=== PATIENT | male | born 1995 | race Caucasian/White ===

== ENCOUNTER → 2021-04-15 12:32 | Outpatient (CLI) | payer OTHER, MEDICAID, SELFPAY ==
[2021-04-15 13:30] LABS: Add Manual Diff / Slide Review NO; Basophils Absolute Auto 100 /uL (0-100); Basophils Percent Auto 1.1 % (0-2); Eosinophils Absolute Auto 300 /uL (0-450); Eosinophils Percent Auto 3.6 % (2-4); Hematocrit 46.9 % (41-53); Hemoglobin 15.3 g/dL (13.5-17.5); Lymphocytes Absolute Auto 2000 /uL (1100-4500); Lymphocytes Percent Auto 23.8 % (25-40); Mean Corpuscular HGB Conc 32.5 % (30-36); Mean Corpuscular Hemoglobin 27.2 PG (26-34); Mean Corpuscular Volume 83.6 fL (80-100); Monocytes Absolute Auto 600 /uL (0-900); Neutrophils Absolute Auto 5300 /uL (1500-7000); Neutrophils Percent Auto 64.5 % (50-75); Platelet Count 227 X10^3/uL (150-400); Red Blood Cell Count 5.61 X10^6/uL (4.5-5.9); Red Cell Distribution Width 13.8 % (11.6-14.8); White Blood Cell Count 8.2 X10^3/uL (4.5-11.0)
[2021-04-15 13:39] LABS: Hemoglobin A1C% w Est Avg Glu 5.1 % (4.0-6.0)
[2021-04-15 13:50] LABS: Alanine Aminotransferase 76 IU/L (<50); Albumin 4.4 g/dL (3.5-5.0); Albumin Globulin Ratio 1.4 (1.0-2.8); Alkaline Phosphatase 50 U/L (38-126); Aspartate Aminotransferase 54 IU/L (17-59); BUN Creatinine Ratio 18.7 (6-22); Bilirubin Total 0.6 mg/dL (0.2-1.3); Blood Urea Nitrogen 14 mg/dL (9-20); Carbon Dioxide 27 mmol/L (22-32); Chloride 104 mmol/L (98-107); Cholesterol 250 mg/dL (140-199); Estimated Glomerular Filt Rate > 60.0 mL/min (>60); Globulin 3.2 g/dL (1.7-4.1); Glucose 86 mg/dL (70-100); HDL Cholesterol 55 mg/dL (40-60); HEMOLYSIS < 15 (0-50); LDL Cholesterol Calculated 174 mg/dL (<100); Sodium 138 mmol/L (137-145); Total Protein 7.6 g/dL (6.3-8.2); Triglycerides 107 mg/dL (35-150)
[2021-04-15 14:20] LABS: TSH w/ Reflex to FT4 1.21 uIU/mL (0.47-4.68)
[2021-04-15 15:48] LABS: Creatinine Urine Random 190.3 mg/dL
[2021-04-15 15:54] LABS: Microalbumi Creatinin Ratio Ur 4.2 ug/mg CR (<30); Microalbumin Urine Random 0.8 mg/dL (0-1.6)
== END ==
PROVIDERS: PCP Family Medicine; Referring Provider Family Medicine; Visit Provider Family Medicine
DX: F32.A Depression, unspecified (principal); F41.9 Anxiety disorder, unspecified; I10 Essential (primary) hypertension
CPT/HCPCS: 36415; 80053; 80061; 82043; 82570; 83036; 84443; 85025

== ENCOUNTER → 2022-07-22 14:41 | Outpatient (CLI) | payer OTHER, MEDICAID, SELFPAY ==
[2022-07-22 17:02] LABS: Alanine Aminotransferase 30 IU/L (<50); Albumin 4.6 g/dL (3.5-5.0); Albumin Globulin Ratio 1.2 (1.0-2.8); Alkaline Phosphatase 72 U/L (38-126); Aspartate Aminotransferase 26 IU/L (17-59); BUN Creatinine Ratio 21.5 (6-22); Bilirubin Total 0.9 mg/dL (0.2-1.3); Blood Urea Nitrogen 17 mg/dL (9-20); Calcium 9.1 mg/dL (8.4-10.2); Carbon Dioxide 29 mmol/L (22-32); Chloride 96 mmol/L (98-107); Cholesterol 227 mg/dL (140-199); Estimated Glomerular Filt Rate > 60 mL/min (>60); Globulin 3.9 g/dL (1.7-4.1); Glucose 94 mg/dL (70-100); HDL Cholesterol 30 mg/dL (40-60); HEMOLYSIS < 15 (0-50); LDL Cholesterol Calculated 173 mg/dL (<100); Potassium 3.1 mmol/L (3.4-5.1); Sodium 141 mmol/L (137-145); Total Protein 8.5 g/dL (6.3-8.2); Triglycerides 120 mg/dL (35-150)
== END ==
PROVIDERS: PCP Family Medicine; Referring Provider Family Medicine; Visit Provider Family Medicine
DX: I10 Essential (primary) hypertension (principal); R74.01 Elevation of levels of liver transaminase levels; E78.5 Hyperlipidemia, unspecified
CPT/HCPCS: 36415; 80053; 80061

== ENCOUNTER 2022-08-18 15:25 | Emergency (ER) | payer OTHER, MEDICAID, SELFPAY ==
[2022-08-18 15:30] VITALS: BP 153/78; PULSE 86; RESP 18; TEMP 36.6; O2SAT 97; BMI 36.6
[2022-08-18 16:28] LABS: Add Manual Diff / Slide Review NO; Basophils Absolute Auto 100 /uL (0-100); Basophils Percent Auto 0.6 % (0-2); Eosinophils Absolute Auto 100 /uL (0-450); Eosinophils Percent Auto 0.7 % (2-4); Hematocrit 45.8 % (41-53); Hemoglobin 15.1 g/dL (13.5-17.5); Lymphocytes Absolute Auto 1200 /uL (1100-4500); Mean Corpuscular HGB Conc 32.8 % (30-36); Mean Corpuscular Hemoglobin 26.9 PG (26-34); Mean Corpuscular Volume 81.9 fL (80-100); Monocytes Absolute Auto 700 /uL (0-900); Monocytes Percent Auto 7.4 % (3-14); Neutrophils Absolute Auto 7800 /uL (1500-7000); Neutrophils Percent Auto 79.3 % (50-75); Platelet Count 215 X10^3/uL (150-400); Red Cell Distribution Width 14.3 % (11.6-14.8); White Blood Cell Count 9.9 X10^3/uL (4.5-11.0)
[2022-08-18 16:39] LABS: Acetaminophen < 10 ug/mL (10-30); Alanine Aminotransferase 29 IU/L (<50); Albumin 4.5 g/dL (3.5-5.0); Albumin Globulin Ratio 1.3 (1.0-2.8); Alkaline Phosphatase 63 U/L (38-126); Aspartate Aminotransferase 26 IU/L (17-59); BUN Creatinine Ratio 25.4 (6-22); Bilirubin Total 0.7 mg/dL (0.2-1.3); Blood Urea Nitrogen 18 mg/dL (9-20); Calcium 8.8 mg/dL (8.4-10.2); Carbon Dioxide 24 mmol/L (22-32); Chloride 100 mmol/L (98-107); Estimated Glomerular Filt Rate > 60 mL/min (>60); Ethanol (ETOH) < 10 mg/dL; Globulin 3.5 g/dL (1.7-4.1); Glucose 100 mg/dL (70-100); HEMOLYSIS 27 (0-50); Potassium 3.8 mmol/L (3.4-5.1); Salicylate < 1.0 mg/dL (<20); Sodium 137 mmol/L (137-145)
--- NOTE | 2022-08-18 16:55 | ED.PSYCH ---
HPI - Psych General Chief Complaint: Psychiatric Symptoms Stated Complaint: Psych Eval Time Seen by Provider: 08/18/22 16:21 Source: patient Mode of arrival: Ambulatory History of Present Illness HPI Narrative: 27-year-old male presenting with concern for worsening delusions/hallucinations. Patient reports dealing with significant stress in the setting of taking care of his parents, patient reports worsening difficulties managing stress and developing hallucinations where he believes in an objects are talking to him. Patient has contemplated suicide, denies clear plan. Patient does report prior inpatient psychiatric admissions. Patient denies suicide attempt prior to arrival today. Related Data Previous Rx's Medication Instructions Recorded ketoconazole 2 % topical cream 1 applic topical DAILY #30 grams 10/06/21 ketoconazole 200 mg tablet 200 mg PO QWEEK #4 tabs 10/22/21 fluoxetine 20 mg capsule (Prozac) 20 mg PO DAILY #90 caps 03/30/22 fluoxetine 40 mg capsule See Rx Instructions .Route 03/30/22 .COMPLEX #90 caps triamcinolone acetonide 0.1 % 1 applic topical BID #80 grams 03/30/22 topical cream Allergies Allergy/AdvReac Type Severity Reaction Status Date / Time No Known Drug Allergies Allergy Verified 04/13/21 08:06 Patient History Medical History ADHD Anxiety and depression Hyperlipidemia Hypertension PTSD (post-traumatic stress disorder) Suicidal ideations Social History Smoking Status: Former smoker Smoking Status: Former smoker Substance Use Type: marijuana Exam Narrative Exam Narrative: Vitals reviewed. Nursing note reviewed Constitutional: interactive HENT: Moist mucous membranes EYES: No scleral icterus NECK: no masses CV: Well perfused peripherally, no cyanosis present PULM: Unlabored respirations, symmetric chest rise ABD: Non-distended MS: No gross deformities, no asymmetric edema noted SKIN: Warm and dry. PSYCH: Appropriate affect, passive SI, hallucinations are present, no HI NEURO: Follows simple commands, moves extremities, interactive with exam Initial Vital Signs Initial Vital Signs: Vital Signs Temperature 97.9 F 08/18/22 15:30 Pulse Rate 86 08/18/22 15:30 Respiratory Rate 18 08/18/22 15:30 Blood Pressure 153/78 H 08/18/22 15:30 Pulse Oximetry 97 08/18/22 15:30 Oxygen Delivery Method 08/18/22 15:30 Course Orders Ordered: ED Orders 08/18/22 15:47 Consult to SCIENCE INSTRUCTOR - Flame Hardening Machine Operator Stat 08/18/22 16:18 Acetaminophen Stat Complete Blood Count AUTO DIFF Stat Comprehensive Metabolic Panel Stat Ethanol (ETOH) Stat Free T4, Direct Thyroxine Stat Salicylate Stat Thyroid Stimulating Hormone Stat 08/18/22 16:35 COVID19 -Nasal RAPID/Pre-Proc Stat 08/18/22 16:38 Urine Drug Screen, Rapid Stat Urine Microscopic Stat Vital Signs Vital signs: Vital Signs - 8 hr 08/18/22 15:30 Temperature 97.9 F Pulse Rate 86 Respiratory Rate 18 Blood Pressure 153/78 H Pulse Oximetry 97 Oxygen Delivery Method Room Air MDM - Psych Lab Data 08/18/22 16:18 08/18/22 16:18 Labs: Lab Results 08/18/22 08/18/22 08/18/22 Range/Units 16:18 16:18 16:18 WBC 9.9 (4.5-11.0) X10^3/uL RBC 5.60 (4.5-5.9) X10^6/uL Hgb 15.1 (13.5-17.5) g/dL Hct 45.8 (41-53) % MCV 81.9 (80-100) fL MCH 26.9 (26-34) PG MCHC 32.8 (30-36) % RDW 14.3 (11.6-14.8) % Plt Count 215 (150-400) X10^3/uL Neut % (Auto) 79.3 H (50-75) % Lymph % (Auto) 12.0 L (25-40) % Kane % (Auto) 7.4 (3-14) % Eos % (Auto) 0.7 L (2-4) % Baso % (Auto) 0.6 (0-2) % Neut # (Auto) 7800 H (9735-0079) /uL Lymph # (Auto) 1200 (7065-2995) /uL Kane # (Auto) 700 (0-900) /uL Eos # (Auto) 100 (0-450) /uL Baso # (Auto) 100 (0-100) /uL Sodium 137 (137-145) mmol/L Potassium 3.8 (3.4-5.1) mmol/L Chloride 100 (98-107) mmol/L Carbon Dioxide 24 (22-32) mmol/L BUN 18 (9-20) mg/dL Creatinine 0.71 (0.66-1.25) mg/dL Estimated GFR > 60 (>60) mL/min BUN/Creatinine Ratio 25.4 H (6-22) Glucose 100 (70-100) mg/dL Calcium 8.8 (8.4-10.2) mg/dL Total Bilirubin 0.7 (0.2-1.3) mg/dL AST 26 (17-59) IU/L ALT 29 (<50) IU/L Alkaline Phosphatase 63 (38-126) U/L Total Protein 8.0 (6.3-8.2) g/dL Albumin 4.5 (3.5-5.0) g/dL Globulin 3.5 (1.7-4.1) g/dL Albumin/Globulin Ratio 1.3 (1.0-2.8) TSH 0.518 (0.47-4.68) uIU/mL Free T4 1.38 (0.78-2.19) ng/dL Urine RBC (0-5/HPF) Urine WBC (0-5/HPF) Ur Squamous Epith Cells (0-5/HPF) Urine Bacteria (None) Ur Culture Indicated? Salicylates < 1.0 (<20) mg/dL U Opiates 300ng/mL cut (Negative) Ur Oxycodone Screen (Negative) Urine Methadone Screen (Negative) Acetaminophen < 10 (10-30) ug/mL Ur Barbiturates Screen (Negative) U Tricyclic Antidepress (Negative) Ur Phencyclidine Scrn (Negative) Ur Amphetamines Screen (Negative) U Methamphetamines Scrn (Negative) Ur MDMA Scrn (Ecstasy) (Negative) U Benzodiazepines Scrn (Negative) Urine Cocaine Screen (Negative) U Marijuana (THC) Screen (Negative) Ethyl Alcohol < 10 ( - 10) mg/dL SARS-CoV-2 (PCR) (Negative) 08/18/22 08/18/22 08/18/22 Range/Units 16:35 16:38 16:38 WBC (4.5-11.0) X10^3/uL RBC (4.5-5.9) X10^6/uL Hgb (13.5-17.5) g/dL Hct (41-53) % MCV (80-100) fL MCH (26-34) PG MCHC (30-36) % RDW (11.6-14.8) % Plt Count (150-400) X10^3/uL Neut % (Auto) (50-75) % Lymph % (Auto) (25-40) % Kane % (Auto) (3-14) % Eos % (Auto) (2-4) % Baso % (Auto) (0-2) % Neut # (Auto) (9431-3644) /uL Lymph # (Auto) (3345-6099) /uL Kane # (Auto) (0-900) /uL Eos # (Auto) (0-450) /uL Baso # (Auto) (0-100) /uL Sodium (137-145) mmol/L Potassium (3.4-5.1) mmol/L Chloride (98-107) mmol/L Carbon Dioxide (22-32) mmol/L BUN (9-20) mg/dL Creatinine (0.66-1.25) mg/dL Estimated GFR (>60) mL/min BUN/Creatinine Ratio (6-22) Glucose (70-100) mg/dL Calcium (8.4-10.2) mg/dL Total Bilirubin (0.2-1.3) mg/dL AST (17-59) IU/L ALT (<50) IU/L Alkaline Phosphatase (38-126) U/L Total Protein (6.3-8.2) g/dL Albumin (3.5-5.0) g/dL Globulin (1.7-4.1) g/dL Albumin/Globulin Ratio (1.0-2.8) TSH (0.47-4.68) uIU/mL Free T4 (0.78-2.19) ng/dL Urine RBC 0-1/hpf (0-5/HPF) Urine WBC None seen (0-5/HPF) Ur Squamous Epith Cells None seen (0-5/HPF) Urine Bacteria None seen (None) Ur Culture Indicated? Cult not indicated Salicylates (<20) mg/dL U Opiates 300ng/mL cut Negative (Negative) Ur Oxycodone Screen Negative (Negative) Urine Methadone Screen Negative (Negative) Acetaminophen (10-30) ug/mL Ur Barbiturates Screen Negative (Negative) U Tricyclic Antidepress Negative (Negative) Ur Phencyclidine Scrn Negative (Negative) Ur Amphetamines Screen Negative (Negative) U Methamphetamines Scrn Negative (Negative) Ur MDMA Scrn (Ecstasy) Negative (Negative) U Benzodiazepines Scrn Negative (Negative) Urine Cocaine Screen Negative (Negative) U Marijuana (THC) Screen Positive H (Negative) Ethyl Alcohol ( - 10) mg/dL SARS-CoV-2 (PCR) Negative (Negative) Urine Dip Bedside Urine Glucose Negative Bedside Urine Bilirubin - Negative Bedside Urine Ketone +++ 80 Urine Specific Cardwell 1.030 Bedside Urine Occult Blood +/- Bedside Urine pH 6 Bedside Urine Protein - Negative Bedside Urine Urobilinogen +/- 1mg Bedside Urine Nitrite - Negative Bedside Urine Leukocytes - Negative Esterase MDM Narrative Medical decision making narrative: 27-year-old male presenting with worsening hallucinations and delusions in the setting of known history of anxiety and depression. On presentation, vital signs notable for hypertension. Physical exam notable for alert and interactive 27-year-old male who is conversant, reassuring cardiopulmonary exam, benign abdomen. Psychiatric exam notable for passive SI, no HI. Initial concern for exacerbation of the patient's underlying psychiatric conditions, infectious etiology, electrolyte derangement, medication effect. Broad screening labs obtained and reassuring as above. Patient without evidence of infection or alternative medical etiology to explain his symptoms. Suspect exacerbation of patient's underlying head psychiatric comorbid conditions. At this time, patient does appear to be medically cleared and appropriate for psychiatric evaluation. Patient accepted that [facility] for voluntary placement. Following transport, patient change his mind regarding inpatient placement. Requesting discharge. Patient was reassessed by both health care / medical job titles and emergency department provider, patient does not appear to be an immediate danger to self others, stress that patient would likely benefit from inpatient treatment, however, patient does not appear to meet retirement criteria at this time. After discussion with both click worker and provider, patient continuing to request discharge. Discussed possibility for decompensation and worsening symptoms, patient did express understanding and continued to request discharge. Patient was subsequently discharged against medical advice. Discharge Plan Departure Patient Disposition: Left Against Medical Advice Clinical Impression: Psychosis Activity Restrictions/Additional Instructions: You are leaving against medical advice. Please return to the emergency department if you change your mind regarding inpatient admission and further management. Please return to the emergency department if you develop thoughts of harming yourself or other individuals. Prescriptions: No Action ketoconazole 2 % cream 1 applic topical DAILY Qty: 30 0RF Rx Instructions: apply until gone. thanks. ketoconazole 200 mg tablet 200 mg PO QWEEK Qty: 4 0RF fluoxetine [Prozac] 20 mg capsule 20 mg PO DAILY Qty: 90 1RF triamcinolone acetonide 0.1 % cream 1 applic topical BID Qty: 80 0RF fluoxetine 40 mg capsule See Rx Instructions .ROUTE .COMPLEX Qty: 90 3RF Dose Instruction: TAKE 1 CAPSULE BY MOUTH DAILY Rx Instructions: TAKE 1 CAPSULE BY MOUTH DAILY Stand Alone Forms: Against Medical Advice
[2022-08-18 16:57] LABS: UR Morphine/Opiate cutoff 300 Negative (Negative); Ur Creatinine Normal (Normal); Ur Specific Gravity Normal (Normal); Urine Amphetamines Negative (Negative); Urine Barbiturates Negative (Negative); Urine Benzodiazepines Negative (Negative); Urine Cocaine Negative (Negative); Urine MDMA Negative (Negative); Urine Methadone Negative (Negative); Urine Methamphetamines Negative (Negative); Urine Oxycodone Negative (Negative); Urine Phencyclidine Negative (Negative); Urine Tetrahydrocannabinol Positive (Negative); Urine Tricyclic Antidepressant Negative (Negative); Urine pH Normal (Normal)
[2022-08-18 16:58] LABS: COVID19 -Nasal RAPID Negative (Negative)
[2022-08-18 17:08] LABS: Free T4, Direct Thyroxine 1.38 ng/dL (0.78-2.19)
[2022-08-18 17:12] LABS: Bacteria Urine None Seen; Culture Indicated Urine Cult Not Indicated; RBC Urine 0-1/HPF (0-5/HPF); Squamous Epithelial Cell Urine None Seen (0-5/HPF); WBC Urine None Seen (0-5/HPF)
[2022-08-18 17:22] LABS: Thyroid Stimulating Hormone 0.518 uIU/mL (0.47-4.68)
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
[2022-08-18 18:00] VITALS: BP 150/78; PULSE 80; RESP 18; O2SAT 98
--- NOTE | 2022-08-18 19:13 | CM.SWNOTE ---
TENNIS DIRECTOR Note TENNIS DIRECTOR calls [facility], intake Viry endorses they have beds and can review patient, TENNIS DIRECTOR faxes clinicals. It is reported that patient is accepted and accepting provider is MARTINA Coker. ETA is 2300. TENNIS DIRECTOR calls [facility] to set up transport. TENNIS DIRECTOR calls therapist and leaves with patient's consent. Patient later requests to speak with TENNIS DIRECTOR. Patient endorses that after speaking with his parents earlier he feels like he can go home and does not need to go to inpatient. Patient endorses he feels delusional OCD compulsion and feels the need to say things on his mind. Patient endorses that he prefers to go home, Patient denies SI, HI and thoughts of self harm. Patient speaks with charge histotechnologist and ED provider prior to leaving. Patient denies any needs from TENNIS DIRECTOR. TENNIS DIRECTOR calls Transport and [facility] and reports that patient does not need transport or inpatient bed. Plan: patient chose to d/c to home. Patient to f/u with outpatient provider. KATHLEEN Moctezuma
== END 2022-08-18 19:19 | disposition left against medical advice (07) ==
PROVIDERS: Emergency Provider Emergency Medicine; PCP Family Medicine
DX: F29 Unspecified psychosis not due to a substance or known physiological condition (principal); Z20.822 Contact with and (suspected) exposure to COVID-19
CPT/HCPCS: 36415; 80053; 80305; 80320; 80329; 81003; 81015; 84439; 84443; 85025; 87635; 99284; C9803; G0480

== ENCOUNTER 2022-09-26 18:11 | Emergency (ER) | payer OTHER, MEDICAID, SELFPAY ==
[2022-09-26 18:22] VITALS: BP 126/82; PULSE 80; RESP 16; TEMP 36.1; O2SAT 100; BMI 36.6
--- NOTE | 2022-09-26 18:27 | DI.RAD.S_ITS ---
PROCEDURE: XR FINGER RT MIN 2V INDICATIONS: 5th digit caught in leash, swelling TECHNIQUE: AP hand, 2 views of the 5th finger(s) acquired. COMPARISON: None. FINDINGS: Bones: Intra-articular oblique fracture of the radial side of the 5th proximal phalanx extending into the proximal interphalangeal joint. No suspicious bony lesions. Soft tissues: No suspicious soft tissue calcifications. IMPRESSION: Minimally displaced 5th proximal phalanx fracture. Dictated by: Derian Acuna M.D. on 09/26/2022 at 17:50 Approved by: Derian Acuna M.D. on 09/26/2022 at 17:52
--- NOTE | 2022-09-26 19:24 | ED_ITS ---
HPI - Extremity Injury (Upper) <Yadira Florentino PA-C - Last Filed: 09/26/22 19:50> General Chief Complaint: Extremity Injury, Upper Stated Complaint: right hand/pinky finger injury Time Seen by Provider: 09/26/22 19:24 History of Present Illness HPI narrative: 27-year-old male presents with concern for right pinky injury sustained 4 days ago. Patient states that he has been trying to socialize his dog who is a large dog and had his hand wrapped in the harness and the leash and somehow his dog pulled the leash wrapping around his finger and causing it to be extremely painful. He states he does not know exactly what happened but he noted that it was swollen and painful and iced it on and off and got himself a finger splint which he has been wearing fairly judiciously. States he got the splint because he noticed he could not really bend his finger very well. He says it was very bruised and swollen initially but has improved. He denies any previous injury or surgery to this finger. He also denies any other injuries. He denies numbness or tingling or change in sensation. Related Data Previous Rx's Medication Instructions Recorded ketoconazole 2 % topical cream 1 applic topical DAILY #30 grams 10/06/21 ketoconazole 200 mg tablet 200 mg PO QWEEK #4 tabs 10/22/21 fluoxetine 40 mg capsule See Rx Instructions .Route 03/30/22 .COMPLEX #90 caps triamcinolone acetonide 0.1 % 1 applic topical BID #80 grams 03/30/22 topical cream fluoxetine 20 mg capsule See Rx Instructions .Route 09/08/22 .COMPLEX #90 caps Allergies Allergy/AdvReac Type Severity Reaction Status Date / Time No Known Drug Allergies Allergy Verified 04/13/21 08:06 Review of Systems <Yadira Florentino PA-C - Last Filed: 09/26/22 19:50> Review of Systems Narrative: Unremarkable except as noted in the HPI Patient History <Yadira Florentino PA-C - Last Filed: 09/26/22 19:50> Medical History ADHD Anxiety and depression Hyperlipidemia Hypertension PTSD (post-traumatic stress disorder) Suicidal ideations Social History Smoking Status: Former smoker Smoking Status: Former smoker Substance Use Type: marijuana Exam <Yadira Florentino PA-C - Last Filed: 09/26/22 19:50> Narrative Exam Narrative: GENERAL: [27] year old patient appears stated age. Well-developed patient, in mild distress. HEAD: Atraumatic. Normocephalic. EYES: Pupils equal round and reactive. Extraocular motions intact. No scleral icterus. No injection or drainage. ENT: Nose without bleeding, purulent drainage. Airway patent. NECK: Trachea midline. Non tender CARDIOVASCULAR: Regular rate and rhythm without murmurs, gallops, or rubs. RESPIRATORY: No increased work of breathing or respiratory distress GASTROINTESTINAL: Abdomen nondistended. EXTREMITIES: In the affected right 5th digit there is moderate swelling present most prominent proximally, there is slight bruising present that is purplish yellow. Patient has tenderness with palpation of the PIP joint proximally, and of the distal portion of the proximal phalanx; no other tenderness noted. Patient is able to flex the affected finger very slightly but with increased pain. Capillary refill is less than 2 seconds, sensation is intact, skin is pink and warm. BACK: Nontender without deformity or crepitance. No flank tenderness. NEURO: AOx3. SKIN: No rash or erythema of visible areas Initial Vital Signs Initial Vital Signs: Vital Signs Temperature 97.0 F L 09/26/22 18:22 Pulse Rate 80 09/26/22 18:22 Respiratory Rate 16 09/26/22 18:22 Blood Pressure 126/82 09/26/22 18:22 Pulse Oximetry 100 09/26/22 18:22 Oxygen Delivery Method Room Air 09/26/22 18:22 <Thong Farrar DO - Last Filed: 09/28/22 13:47> Initial Vital Signs Initial Vital Signs: Vital Signs Temperature 97.0 F L 09/26/22 18:22 Pulse Rate 80 09/26/22 18:22 Respiratory Rate 16 09/26/22 18:22 Blood Pressure 126/82 09/26/22 18:22 Pulse Oximetry 100 09/26/22 18:22 Oxygen Delivery Method Room Air 09/26/22 18:22 Course <Yadira Florentino PA-C - Last Filed: 09/26/22 19:50> Orders Ordered: ED Orders 09/26/22 18:27 XR finger RT min 2V Stat Vital Signs Vital signs: Vital Signs - 8 hr 09/26/22 18:22 Temperature 97.0 F L Pulse Rate 80 Respiratory Rate 16 Blood Pressure 126/82 Pulse Oximetry 100 Oxygen Delivery Method Room Air <Thong Farrar DO - Last Filed: 09/28/22 13:47> Orders Ordered: ED Orders 09/26/22 18:27 XR finger RT min 2V Stat Vital Signs Vital signs: Vital Signs - 8 hr 09/26/22 18:22 Temperature 97.0 F L Pulse Rate 80 Respiratory Rate 16 Blood Pressure 126/82 Pulse Oximetry 100 Oxygen Delivery Method Room Air MDM - Extremity Injury (Upper) <Yadira Florentino PA-C - Last Filed: 09/26/22 19:50> Differential Diagnosis Differential diagnosis: Likely finger sprain, dislocation of finger and other (Finger fracture) Medical Records Attestation: I reviewed the patient's medical records. Imaging Data Extremity x-ray #1: My Impression: I agree with the radiologist's interpretation of the image Radiologist's Impression: [place] [address] XRay Report Signed Patient: Sancho Young MR#: [id number] : 1995 Acct:[id number] Age/Sex: 27 / M Date of Service: 09/26/22 Loc: ED Accession Number: [id number] ?? Procedure: XR finger RT min 2V Ordering Provider: Thong Farrar D.O. PROCEDURE:? XR FINGER RT MIN 2V ? INDICATIONS:? 5th digit caught in leash, swelling ? TECHNIQUE:? AP hand, 2 views of the 5th finger(s) acquired.? ? COMPARISON:? None. ? FINDINGS:? ? Bones:? Intra-articular oblique fracture of the radial side of the 5th proximal phalanx extending into the proximal interphalangeal joint.? No suspicious bony lesions.? ? Soft tissues:? No suspicious soft tissue calcifications.? ? IMPRESSION:? Minimally displaced 5th proximal phalanx fracture. ? ? Dictated by: Derian Aucna M.D. on 09/26/2022 at 17:50 ? ? Approved by: Derian Acuna M.D. on 09/26/2022 at 17:52?? MDM Narrative Medical decision making narrative: Is a well-appearing 27-year-old Right handed male who presents with concern for right 5th digit pain at and proximal to the PIP present for 4 days since dog leash wrapped around his finger and yanked on it. Has been wearing a finger splint and icing on and off has not been bending it due to pain and swelling. Exam today shows he is neurovascularly intact he does have reduced range of motion 2nd to pain. X-ray does show a mildly displaced fracture of the distal aspect of the proximal phalanx. Given location of the fracture surgical intervention is possibly necessary, Orthopedics is consulted and agrees with plan for splinting and outpatient follow-up, patient is placed in a updated finger splint in the emergency department. Return precautions provided, follow- up plan discussed, all questions answered. Discharge Plan Departure Patient Disposition: Home Clinical Impression: Finger fracture, right Instructions: DI for Fracture Activity Restrictions/Additional Instructions: Thank you for letting us be part of your care today in the emergency department, your x-ray does show that you have a fracture of the 1st bone in your right pinky, which likely explains your pain and swelling and reduced range of motion since your dog wrapped a leash around it and pulled it 4 days ago. I would like you to continue with icing on and off as needed for pain and swelling, no more than 10 minutes at a time, you can keep your hand elevated, keep it in a splint/immobilized. You may also use Tylenol and ibuprofen alternating for pain as needed. We provided a new splint for you today in the emergency department. We also consulted Orthopedics and you should follow-up with them as there is a possibility that this fracture may require surgery based on its location near the joint. There is no evidence of an emergent or life threatening illness at this time, but follow up with your doctor in 1-2 days is recommended nonetheless to continue to rule out serious underlying causes of your symptoms. Please call the office for an appointment. Please return to the Emergency Department for any worsening or persistent symptoms. Please take medications as directed. Prescriptions: No Action ketoconazole 2 % cream 1 applic topical DAILY Qty: 30 0RF Rx Instructions: apply until gone. thanks. ketoconazole 200 mg tablet 200 mg PO QWEEK Qty: 4 0RF fluoxetine 20 mg capsule See Rx Instructions .ROUTE .COMPLEX Qty: 90 0RF Dose Instruction: TAKE 1 CAPSULE BY MOUTH DAILY Rx Instructions: TAKE 1 CAPSULE BY MOUTH DAILY triamcinolone acetonide 0.1 % cream 1 applic topical BID Qty: 80 0RF fluoxetine 40 mg capsule See Rx Instructions .ROUTE .COMPLEX Qty: 90 3RF Dose Instruction: TAKE 1 CAPSULE BY MOUTH DAILY Rx Instructions: TAKE 1 CAPSULE BY MOUTH DAILY Referrals: Jorge Vazquez MD [Physician] - (Right handed, Proximal phalanx mild displaced fx) Te Walden MD [Primary Care Provider] - Stand Alone Forms: Patient Portal/API <Thong Farrar DO - Last Filed: 09/28/22 13:47> Cosign ED Attending Cosignature Attestation: I was immediately available in the department for consultation. Documentation has been reviewed. I agree with assessment and plan.
== END 2022-09-26 20:04 | disposition home or self-care (01) ==
PROVIDERS: Emergency Provider Student in an Organized Health Care Education/Training Program; PCP Family Medicine
DX: S62.616A Displaced fracture of proximal phalanx of right little finger, initial encounter for closed fracture (principal); W49.09XA Other specified item causing external constriction, initial encounter
CPT/HCPCS: 29130; 73140; 99281; 99283

== ENCOUNTER 2022-10-06 13:43 | Day surgery (SDC) | payer OTHER, MEDICAID, SELFPAY ==
[2022-10-05 08:03] VITALS: BMI 36.6
[2022-10-06] VITALS (7 sets, daily range): BP systolic 100–127; BP diastolic 54–77; PULSE 79–87; RESP 16–18; TEMP 36.1–37.2; O2SAT 95–98; BMI 36.6
[2022-10-06] MEDS: LACTATED RINGERS 1,000 ML 42 ML IV (14:50)
--- NOTE | 2022-10-06 15:45 | PM.PREOP ---
Pre-operative Note Interval Note History & Physical reviewed/Exam performed by Physician: Yes Changes to H&P: No
[2022-10-06] MEDS: CEFAZOLIN 2 GM/100 ML PREMIX 100 ML IV (15:54)
--- NOTE | 2022-10-06 16:10 | SUR.OPER ---
Supine on padded OR bed, head on pillow, left arm secured on padded arm boards at <90 degrees abduction, right arm on padded arm board extention and in control of surgeon. Legs uncrossed, safety belt at thigh, tape over blanket over lower legs. Gel pad under bilateral heels.
[2022-10-06] MEDS: BUPIVACAINE 0.25% (PF) VIAL 10 ML INJ (16:27)
--- NOTE | 2022-10-06 16:44 | P.OP_ITS ---
Operative Date/Time/Diagnoses Date of procedure: 10/06/22 Time of procedure: 16:46 Pre-op diagnosis: Right small finger proximal phalanx intra-articular fracture Post-op diagnosis: same Procedure & Clinicians Procedure: Open reduction percutaneous pinning right small finger proximal phalanx Same procedure as scheduled: Yes Indications: This is a 27-year-old male who broke his right small finger proximal phalanx at the PIP joint when his dog twisted his finger and the leash. As this was intra- articular and the condyle was displaced, he was indicated for reduction and pinning. Risks and benefits of surgery were discussed again including the risk of infection, damage to internal structures, bleeding, nerve injury, instability, need for revision surgery, blood clots, anesthesia and . No guarantees were made regarding outcomes. Patient expressed understanding and accepted these risks and wished to go forward with surgery and consent was signed. He expressed understanding and wished to go forward with surgery. Surgeon: Jorge Vazquez Click Yes if Unassisted: Yes Anesthesia Type: General Operative Notes Findings: Oblique intra-articular fracture of the proximal phalanx right hand Closure Type: primary Specimen(s): none sent Prosthetic devices, grafts, tissues, transplants, or devices: A single 1.6 K-wire Estimated Blood Loss (mL): 2 Blood products transfused: none Procedure in detail: Patient was seen in the preoperative holding area. His right hand was examined and marked with my initials. We again went over the risks and benefits of surgery and he wished to go forward with surgery. He was brought back to the operating room and placed supine on the operating table. Given IV antibiotics. He was given light sedation which was then transitioned to a LMA. The right upp er extremity was prepped and draped in the standard sterile fashion. A time-out was performed in my initials were again confirmed on the right hand. I began by making a 1/2 cm incision over the radial border of the distal end of the proximal phalanx of the small finger. A [place] was used to assist in reduction along with a pointed reduction clamp. A K-wire was then placed from the ulnar side across the fracture. It was then bent and a Jurgan ball was placed. The incision on the radial side was closed with a [id number] stitch. He was then placed into a finger splint and woken from anesthesia. We will plan on pulling the wire in 4 weeks and he will remain in his splint for 6 total weeks after which he will begin physical therapy for range of motion. Complications: none Post-operative Condition: stable Plan for aftercare: Sutures out in 2 weeks. Keep splint on and dry until then. Okay to redress wound if dressings get dirty.
== END 2022-10-06 17:38 | disposition home or self-care (01) ==
PROVIDERS: PCP Family Medicine; Referring Provider Orthopaedic Surgery; Visit Provider Orthopaedic Surgery
PROC: (CPT 26735; principal; 2022-10-06 14:45)
DX: S62.616A Displaced fracture of proximal phalanx of right little finger, initial encounter for closed fracture (principal); X50.1XXA Overexertion from prolonged static or awkward postures, initial encounter; Y93.K1 Activity, walking an animal
CPT/HCPCS: 26735; J0690; J1100; J2405; J2704; J3010; J3490

== ENCOUNTER 2022-11-23 09:36 | Outpatient (RCR) | payer OTHER, MEDICAID, SELFPAY ==
--- NOTE | 2022-11-23 16:00 | OT.OP.EVAL ---
Visit Care Team Role Provider Type Te Walden MD Primary Care Provider Physician Specialty: Family Practice Address: [address] [place] [address], [id number] Email: [email or web address] Pantoja Family Provider Non-Staff Specialty: Family Practice Address: [address] [place] [address], [address], [place], [address] Email: Jorge Vazquez MD Attending Provider Physician Referring Provider Specialty: Orthopedics Orthopedic Surgery Address: [address] [place] [address], [address] Email: [email or web address] [facility] Initial Evaluation OT Outpatient Adult Evaluation Start: 11/24/22 09:28 Freq: Status: Active Protocol: Document 11/23/22 16:00 AMS (Rec: 11/24/22 09:36 AMS [id number]) General Information - Adult Visit Number EVAL; 0/12 Insurance Information [facility]; 1 eval & max 12 OT visits [facility] Visit Start Time 09:45 Visit Stop Time 10:15 Total Visit Minutes 30 Treatment Setting Outpatient Care Note Type Initial Evaluation Referring Physician Jorge Lezama MD Precautions Closed displaced fracture of proximal phalanx of right little finger Surgery = Right pinky finger proximal phalanx percutaneous pinning w/ Dr. Vazquez () Treatment Description = OT eval and treat. HEP. ROM. Follow-up w/ in 12 weeks after starting OT. Identification Confirmed Yes Identification Confirmed By Self Goals Short Term Goals 1. Patient will present with increased ability to execute daily and work tasks in a variety of environments 1a. This will be evidenced by improved active flexion of PIPJ of the R 5th digit to 80 degrees active flexion. Industrial Health Engineer Goals 1. Patient will be modified independent with execution of home exercise program utilizing provided written and visual instructions from therapist. 2. Patient will present with increased ability to execute daily and work tasks in a variety of environments 2a. This will be evidenced by obtaining a QuickDASH UE Outcome Measure Score < 12.00. 2b. This will be evidenced by obtaining a QuickDASH UE Work Module Score < 25.00. Assessment/Plan Treatment Assessment Orders from referring physician: Closed displaced fracture of proximal phalanx of right little finger Surgery = Right pinky finger proximal phalanx percutaneous pinning w/ Dr. Vazquez () Treatment Description = OT eval and treat. HEP. ROM. Follow-up w/ in 12 weeks after starting OT. 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 His mother has stage 4 kidney failure and recently broke her ankle; his father uses a SPC for mobility and both have difficulties with their balance with Sancho reportedly assisting them from floor/d/t falls as needed. Sancho reported that the injury to his R 5th digit occurred secondary to his dog's leash getting wrapped around the little finger while he was a the dog park. Surgery was performed (see above). Sancho denied any precautions at this time. He would like to improve upon the strength of the little finger as well as the ROM. Medical history is significant for ADHD, hyperlipidemia, PTSD, anxiety and depression, and HTN, as well as injury to the R 5th finger when he was younger ( tore off the skin w/ need for surgery; radial shaft scar reportedly from this injury as a child). Sancho denied pain/discomfort of the R 5th digit. QuickDASH UE Outcome Measure Score = 20.45; QuickDASH UE Work Module Score = 37.5; QuickDASH UE Sports/Performing Arts Module Score = 0.00. 65 degrees active R 5th DIPJ; 70 degrees active R 5th PIPJ vs 90 degrees passive R 5th PIPJ flexion; 90 degrees active R MPJ. Able to position hand/ little finger flat on table without c/o pain/discomfort/ tenderness and/or difficulties w/ weight bearing. Some weakness present; 4/5 MMT R 5th digit abd/add; 4/5 MMT R 5th digit flex/ext. Sancho reports actively working on strengthening of the finger w/ use of stress ball. Sancho would likely benefit from outpatient OT to address weakness, ROM, development of HEP, and improve functional abilities of the right hand w/ completion of daily tasks and work tasks in a variety of environments. Home Exercise Program Provided medium firm blue theraputty for home use; instructed in the care and storage of theraputty (was provided to patient in ziplock bag). Instructed in flex/ext strengthening exercises, as well as abd/add strengthening exercises utilizing the theraputty. Sancho denied questions re: strengthening exercises. Instructed in passive hook fist stretch utilizing contralateral hand w / hold of 20 to 30 seconds; discussed use of heat to support range of motion and flexibility. Instructed in use of coban wrap for passive stretch for up to 20 minutes as tolerated. Sancho denied questions about any of the exercises/recommendations. Length of treatment (weeks) 8 Plan of Care Start Date 11/23/22 Plan of Care End Date 01/18/23 Comment 1 -2 times per week; has insurance limitations Therapeutic Contents Active Range of Motion, Adaptive Equipment Education, Client Education,Functional Activities,Home Exercise Program,Joint Protection, Manual Therapy,Education, Neurodevelopment Treatment, Neuromuscular Re-Education, Self-Care,Stretching/ Flexibility Activities, Therapeutic Activities, Therapeutic Exercises, Modalities,Sensory Re- education Modalities As Needed,As Prescribed Additional Types of Modalities Heat/Ice/Contrast baths/ Ultrasound/Paraffin bath Patient Recommendations Continue with Current Program, Advance per Rehabilitation Protocol
--- NOTE | 2023-01-19 09:09 | OT.OP.DC ---
Visit Care Team Role Provider Type Te Walden MD Primary Care Provider Physician Address: [address] [place] [address], [id number] Email: [email or web address] Kirsten MARTINA Moya Family Provider Non-Staff Address: [address] [place] [address], [address], [place], [address] Email: Jorge Vazquez MD Attending Provider Physician Referring Provider Address: [address] [place] [address], [address] Email: [email or web address] Outpatient OT Outpatient Adult Evaluation Start: 11/24/22 09:28 Freq: Status: Active Protocol: Document 11/23/22 16:00 AMS (Rec: 11/24/22 09:36 AMS [id number]) General Information - Adult Visit Information Visit Number EVAL; 0/12 Insurance Information [facility]; 1 eval & max 12 OT visits PCY Session Time Visit Start Time 09:45 Visit Stop Time 10:15 Total Visit Minutes 30 Setting Treatment Setting Outpatient Care Visit Type Note Type Initial Evaluation Referral Referring Physician Jorge Lezama MD Precautions Closed displaced fracture of proximal phalanx of right little finger Surgery = Right pinky finger proximal phalanx percutaneous pinning w/ Dr. Vazquez () Treatment Description = OT eval and treat. HEP. ROM. Follow-up w/ in 12 weeks after starting OT. Identification Identification Confirmed Yes Identification Confirmed By Self Goals Short Term Goals Short Term Goals 1. Patient will present with increased ability to execute daily and work tasks in a variety of environments 1a. This will be evidenced by improved active flexion of PIPJ of the R 5th digit to 80 degrees active flexion. Shelter Goals Public Safety Director Goals 1. Patient will be modified independent with execution of home exercise program utilizing provided written and visual instructions from therapist. 2. Patient will present with increased ability to execute daily and work tasks in a variety of environments 2a. This will be evidenced by obtaining a QuickDASH UE Outcome Measure Score < 12.00. 2b. This will be evidenced by obtaining a QuickDASH UE Work Module Score < 25.00. Assessment/Plan Assessment Treatment Assessment Orders from referring physician: Closed displaced fracture of proximal phalanx of right little finger Surgery = Right pinky finger proximal phalanx percutaneous pinning w/ Dr. Vazquez () Treatment Description = OT eval and treat. HEP. ROM. Follow-up w/ in 12 weeks after starting OT. 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 His mother has stage 4 kidney failure and recently broke her ankle; his father uses a SPC for mobility and both have difficulties with their balance with Sancho reportedly assisting them from floor/d/t falls as needed. Sancho reported that the injury to his R 5th digit occurred secondary to his dog's leash getting wrapped around the little finger while he was a the dog park. Surgery was performed (see above). Sancho denied any precautions at this time. He would like to improve upon the strength of the little finger as well as the ROM. Medical history is significant for ADHD, hyperlipidemia, PTSD, anxiety and depression, and HTN, as well as injury to the R 5th finger when he was younger ( tore off the skin w/ need for surgery; radial shaft scar reportedly from this injury as a child). Sancho denied pain/discomfort of the R 5th digit. QuickDASH UE Outcome Measure Score = 20.45; QuickDASH UE Work Module Score = 37.5; QuickDASH UE Sports/Performing Arts Module Score = 0.00. 65 degrees active R 5th DIPJ; 70 degrees active R 5th PIPJ vs 90 degrees passive R 5th PIPJ flexion; 90 degrees active R MPJ. Able to position hand/ little finger flat on table without c/o pain/discomfort/ tenderness and/or difficulties w/ weight bearing. Some weakness present; 4/5 MMT R 5th digit abd/add; 4/5 MMT R 5th digit flex/ext. Sancho reports actively working on strengthening of the finger w/ use of stress ball. Sancho would likely benefit from outpatient OT to address weakness, ROM, development of HEP, and improve functional abilities of the right hand w/ completion of daily tasks and work tasks in a variety of environments. Home Exercise Program Provided medium firm blue theraputty for home use; instructed in the care and storage of theraputty (was provided to patient in ziplock bag). Instructed in flex/ext strengthening exercises, as well as abd/add strengthening exercises utilizing the theraputty. Sancho denied questions re: strengthening exercises. Instructed in passive hook fist stretch utilizing contralateral hand w / hold of 20 to 30 seconds; discussed use of heat to support range of motion and flexibility. Instructed in use of coban wrap for passive stretch for up to 20 minutes as tolerated. Sancho denied questions about any of the exercises/recommendations. Plan Length of treatment (weeks) 8 Plan of Care Start Date 11/23/22 Plan of Care End Date 01/18/23 Comment 1 -2 times per week; has insurance limitations Therapeutic Contents Active Range of Motion, Adaptive Equipment Education, Client Education,Functional Activities,Home Exercise Program,Joint Protection, Manual Therapy,Education, Neurodevelopment Treatment, Neuromuscular Re-Education, Self-Care,Stretching/ Flexibility Activities, Therapeutic Activities, Therapeutic Exercises, Modalities,Sensory Re- education Modalities As Needed,As Prescribed Additional Types of Modalities Heat/Ice/Contrast baths/ Ultrasound/Paraffin bath Patient Recommendations Continue with Current Program, Advance per Rehabilitation Protocol Functional Wrist/Hand Scan Hand Side Sensory Assessment Sensory Profile2 OT Outpatient Treatment Note - Adult Start: 11/24/22 09:28 Freq: Status: Active Protocol: Document 01/19/23 09:07 [facility] (Rec: 01/19/23 09:09 [facility] [id number]) OT Outpatient Adult Treatment Note Visit Information Plan of Care Dates 11/23/22 - 01/18/23 Insurance Information [facility] Setting Treatment Setting Outpatient Care Visit Type Note Type Discharge Summary - Subjective Observations Patient has not been seen in the outpatient clinic by OT since date of initial evaluation (11/23/22) and POC 01/18/23. Thus, recommend d/c from outpatient OT at this time. - Objective Short Term Goals ALL GOALS D/C 01/19/23 1. Patient will present with increased ability to execute daily and work tasks in a variety of environments 1a. This will be evidenced by improved active flexion of PIPJ of the R 5th digit to 80 degrees active flexion. Public Safety Director Goals ALL GOALS D/C 01/19/23 1. Patient will be modified independent with execution of home exercise program utilizing provided written and visual instructions from therapist. 2. Patient will present with increased ability to execute daily and work tasks in a variety of environments 2a. This will be evidenced by obtaining a QuickDASH UE Outcome Measure Score < 12.00. 2b. This will be evidenced by obtaining a QuickDASH UE Work Module Score < 25.00. - - Assessment Assessment of Improvement Patient has not been seen in the outpatient clinic by OT since date of initial evaluation (11/23/22) and POC 01/18/23. Thus, recommend d/c from outpatient OT at this time. - Plan Therapy Recommendations Discharge from Occupational Therapy
== END 2023-01-20 15:17 ==
LOC: OT 09:36
PROVIDERS: Family Provider Nurse Practitioner Family; PCP Family Medicine; Referring Provider Orthopaedic Surgery; Visit Provider Orthopaedic Surgery
DX: S62.616D Displaced fracture of proximal phalanx of right little finger, subsequent encounter for fracture with routine healing (principal)
CPT/HCPCS: 97165

== ENCOUNTER → 2023-02-02 16:17 | Outpatient (CLI) | payer OTHER, MEDICAID, SELFPAY ==
[2023-02-02 17:40] LABS: Alanine Aminotransferase 24 IU/L (<50); Albumin 4.5 g/dL (3.5-5.0); Albumin Globulin Ratio 1.5 (1.0-2.8); Alkaline Phosphatase 59 U/L (38-126); Aspartate Aminotransferase 27 IU/L (17-59); BUN Creatinine Ratio 23.8 (6-22); Bilirubin Total 1.3 mg/dL (0.2-1.3); Blood Urea Nitrogen 19 mg/dL (9-20); Calcium 8.8 mg/dL (8.4-10.2); Carbon Dioxide 24 mmol/L (22-32); Chloride 103 mmol/L (98-107); Cholesterol 223 mg/dL (140-199); Estimated Glomerular Filt Rate > 60 mL/min (>60); Globulin 3.1 g/dL (1.7-4.1); Glucose 88 mg/dL (70-100); HDL Cholesterol 44 mg/dL (40-60); HEMOLYSIS < 15 (0-50); LDL Cholesterol Calculated 157 mg/dL (<100); Potassium 4.2 mmol/L (3.4-5.1); Sodium 137 mmol/L (137-145); Total Protein 7.6 g/dL (6.3-8.2); Triglycerides 111 mg/dL (35-150)
== END ==
PROVIDERS: Family Provider Nurse Practitioner Family; PCP Family Medicine; Referring Provider Family Medicine; Visit Provider Family Medicine
DX: E78.2 Mixed hyperlipidemia (principal); I10 Essential (primary) hypertension
CPT/HCPCS: 36415; 80053; 80061

== ENCOUNTER → 2023-09-13 13:04 | Outpatient (CLI) | payer OTHER, MEDICAID, SELFPAY ==
[2023-09-13 13:40] LABS: Add Manual Diff / Slide Review NO; Basophils Absolute Auto 0 /uL (0-100); Basophils Percent Auto 0.8 % (0-2); Eosinophils Absolute Auto 200 /uL (0-450); Eosinophils Percent Auto 3.3 % (2-4); Hematocrit 44.5 % (41-53); Lymphocytes Absolute Auto 1800 /uL (1100-4500); Lymphocytes Percent Auto 28.8 % (25-40); Mean Corpuscular HGB Conc 33.6 % (30-36); Mean Corpuscular Hemoglobin 27.6 PG (26-34); Mean Corpuscular Volume 82.2 fL (80-100); Monocytes Absolute Auto 400 /uL (0-900); Monocytes Percent Auto 6.9 % (3-14); Neutrophils Absolute Auto 3800 /uL (1500-7000); Neutrophils Percent Auto 60.2 % (50-75); Platelet Count 200 X10^3/uL (150-400); Red Blood Cell Count 5.41 X10^6/uL (4.5-5.9); Red Cell Distribution Width 13.6 % (11.6-14.8); White Blood Cell Count 6.3 X10^3/uL (4.5-11.0)
[2023-09-13 13:46] LABS: Hemoglobin A1C% w Est Avg Glu 5.2 % (4.0-6.0)
[2023-09-13 13:51] LABS: Alanine Aminotransferase 32 IU/L (<50); Albumin 4.1 g/dL (3.5-5.0); Albumin Globulin Ratio 1.2 (1.0-2.8); Alkaline Phosphatase 45 U/L (38-126); Aspartate Aminotransferase 31 IU/L (17-59); BUN Creatinine Ratio 15.4 (6-22); Bilirubin Total 0.9 mg/dL (0.2-1.3); Blood Urea Nitrogen 12 mg/dL (9-20); Calcium 8.8 mg/dL (8.4-10.2); Carbon Dioxide 25 mmol/L (22-32); Chloride 108 mmol/L (98-107); Cholesterol 261 mg/dL (140-199); Estimated Glomerular Filt Rate > 60 mL/min (>60); Globulin 3.4 g/dL (1.7-4.1); Glucose 88 mg/dL (70-100); HDL Cholesterol 49 mg/dL (40-60); HEMOLYSIS < 15 (0-50); LDL Cholesterol Calculated 188 mg/dL (<100); Potassium 4.1 mmol/L (3.4-5.1); Sodium 138 mmol/L (137-145); Total Protein 7.5 g/dL (6.3-8.2); Triglycerides 118 mg/dL (35-150)
[2023-09-13 14:21] LABS: TSH w/ Reflex to FT4 0.65 uIU/mL (0.47-4.68)
== END ==
PROVIDERS: Family Provider Nurse Practitioner Family; PCP Family Medicine; Referring Provider Psychiatry & Neurology Psychiatry; Visit Provider Psychiatry & Neurology Psychiatry
DX: I10 Essential (primary) hypertension (principal); E78.5 Hyperlipidemia, unspecified; F41.9 Anxiety disorder, unspecified; F32.A Depression, unspecified; F43.10 Post-traumatic stress disorder, unspecified
CPT/HCPCS: 36415; 80053; 80061; 83036; 84443; 85025

== ENCOUNTER → 2023-12-09 13:30 | Outpatient (CLI) | payer OTHER, MEDICAID, SELFPAY ==
[2023-12-09 14:52] LABS: Lithium < 0.2 mmol/L (0.6-1.2)
== END ==
PROVIDERS: Family Provider Nurse Practitioner Family; PCP Family Medicine; Referring Provider Psychiatry & Neurology Psychiatry; Visit Provider Psychiatry & Neurology Psychiatry
DX: F31.81 Bipolar II disorder (principal)
CPT/HCPCS: 36415; 80178

== ENCOUNTER → 2023-12-28 11:21 | Outpatient (CLI) | payer OTHER, MEDICAID, SELFPAY ==
[2023-12-28 12:24] LABS: Lithium 0.3 mmol/L (0.6-1.2)
== END ==
PROVIDERS: Family Provider Nurse Practitioner Family; PCP Family Medicine; Referring Provider Psychiatry & Neurology Psychiatry; Visit Provider Psychiatry & Neurology Psychiatry
DX: Z51.81 Encounter for therapeutic drug level monitoring (principal); F31.9 Bipolar disorder, unspecified; F41.9 Anxiety disorder, unspecified; F32.A Depression, unspecified
CPT/HCPCS: 36415; 80178

== ENCOUNTER → 2024-03-07 15:24 | Outpatient (CLI) | payer OTHER, MEDICAID, SELFPAY ==
[2024-03-07 17:24] LABS: Alanine Aminotransferase 78 IU/L (<50); Albumin 4.3 g/dL (3.5-5.0); Albumin Globulin Ratio 1.3 (1.0-2.8); Alkaline Phosphatase 44 U/L (38-126); Aspartate Aminotransferase 45 IU/L (17-59); BUN Creatinine Ratio 12.8 (6-22); Bilirubin Total 0.9 mg/dL (0.2-1.3); Blood Urea Nitrogen 11 mg/dL (9-20); Calcium 8.9 mg/dL (8.4-10.2); Carbon Dioxide 24 mmol/L (22-32); Chloride 104 mmol/L (98-107); Estimated Glomerular Filt Rate > 60 mL/min (>60); Globulin 3.4 g/dL (1.7-4.1); Glucose 83 mg/dL (70-100); HEMOLYSIS < 15 (0-50); Potassium 3.9 mmol/L (3.4-5.1); Sodium 137 mmol/L (137-145); Total Protein 7.7 g/dL (6.3-8.2)
== END ==
PROVIDERS: Family Provider Nurse Practitioner Family; PCP Family Medicine; Referring Provider Psychiatry & Neurology Psychiatry; Visit Provider Psychiatry & Neurology Psychiatry
DX: Z79.899 Other long term (current) drug therapy (principal)
CPT/HCPCS: 36415; 80053

== ENCOUNTER → 2024-05-02 14:36 | Outpatient (CLI) | payer OTHER, MEDICAID, SELFPAY ==
[2024-05-02 15:57] LABS: Lithium 0.5 mmol/L (0.6-1.2)
== END ==
PROVIDERS: Family Provider Nurse Practitioner Family; PCP Family Medicine; Referring Provider Psychiatry & Neurology Psychiatry; Visit Provider Psychiatry & Neurology Psychiatry
DX: F90.0 Attention-deficit hyperactivity disorder, predominantly inattentive type (principal); F31.9 Bipolar disorder, unspecified; F43.10 Post-traumatic stress disorder, unspecified; F41.9 Anxiety disorder, unspecified; F32.A Depression, unspecified; Z79.899 Other long term (current) drug therapy
CPT/HCPCS: 36415; 80178; 90833; 99214

== ENCOUNTER → 2024-09-06 12:19 | Outpatient (CLI) | payer OTHER, SELFPAY ==
[2024-09-06 13:23] LABS: Lithium 0.5 mmol/L (0.6-1.2)
== END ==
LOC: LAB 12:20
PROVIDERS: Family Provider Nurse Practitioner Family; PCP Family Medicine; Referring Provider Psychiatry & Neurology Psychiatry; Visit Provider Psychiatry & Neurology Psychiatry
DX: F31.9 Bipolar disorder, unspecified (principal); Z79.899 Other long term (current) drug therapy
CPT/HCPCS: 36415; 80178; 99214

== ENCOUNTER → 2024-12-21 14:32 | Outpatient (CLI) | payer OTHER, SELFPAY ==
[2024-12-21 15:31] LABS: Add Manual Diff / Slide Review NO; Basophils Absolute Auto 0 /uL (0-100); Basophils Percent Auto 0.8 % (0-2); Eosinophils Absolute Auto 100 /uL (0-450); Hematocrit 46.8 % (41-53); Hemoglobin 15.8 g/dL (13.5-17.5); Lymphocytes Absolute Auto 1900 /uL (1100-4500); Lymphocytes Percent Auto 30.9 % (25-40); Mean Corpuscular HGB Conc 33.7 % (30-36); Mean Corpuscular Hemoglobin 27.1 PG (26-34); Mean Corpuscular Volume 80.4 fL (80-100); Monocytes Absolute Auto 300 /uL (0-900); Monocytes Percent Auto 5.5 % (3-14); Neutrophils Absolute Auto 3700 /uL (1500-7000); Neutrophils Percent Auto 60.8 % (50-75); Platelet Count 191 X10^3/uL (150-400); Red Blood Cell Count 5.82 X10^6/uL (4.5-5.9); Red Cell Distribution Width 14.2 % (11.6-14.8); White Blood Cell Count 6.1 X10^3/uL (4.5-11.0)
[2024-12-21 15:57] LABS: Alanine Aminotransferase 63 IU/L (<50); Albumin 4.6 g/dL (3.5-5.0); Albumin Globulin Ratio 1.6 (1.0-2.8); Alkaline Phosphatase 49 U/L (38-126); Aspartate Aminotransferase 35 IU/L (17-59); BUN Creatinine Ratio 14.2 (6-22); Bilirubin Total 0.8 mg/dL (0.2-1.3); Blood Urea Nitrogen 15 mg/dL (9-20); Calcium 8.9 mg/dL (8.4-10.2); Carbon Dioxide 21 mmol/L (22-32); Chloride 108 mmol/L (98-107); Estimated Glomerular Filt Rate > 60 mL/min (>60); Globulin 2.8 g/dL (1.7-4.1); Glucose 96 mg/dL (70-99); HEMOLYSIS < 15 (0-50); Lithium < 0.2 mmol/L (0.6-1.2); Potassium 4.1 mmol/L (3.4-5.1); Sodium 140 mmol/L (137-145); Total Protein 7.4 g/dL (6.3-8.2)
[2024-12-21 16:28] LABS: TSH w/ Reflex to FT4 0.65 uIU/mL (0.47-4.68)
== END ==
PROVIDERS: Family Provider Nurse Practitioner Family; PCP Family Medicine; Referring Provider Family Medicine; Visit Provider Psychiatry & Neurology Psychiatry
DX: F31.9 Bipolar disorder, unspecified (principal); Z79.899 Other long term (current) drug therapy
CPT/HCPCS: 36415; 80053; 80178; 83036; 84443; 85025